=== PATIENT | female | born 1970 | race Caucasian/White ===

== ENCOUNTER 2023-04-16 05:30 | Emergency (ER) | payer MEDICAID ==
[~2023-04-16] VITALS: Ht 165.1 cm; Wt 99.8 kg
[2023-04-16 05:35] VITALS: BP 166/96; PULSE 91; RESP 18; TEMP 98.5; O2SAT 99
[2023-04-16] MEDS ORDERED: KETOROLAC 30 MG/ML VIAL ONE (07:18)
[2023-04-16] MEDS ORDERED: ONDANSETRON 4 MG/2 ML VIAL ONE (07:19)
[2023-04-16] MEDS: ONDANSETRON 4 MG/2 ML VIAL IVP ONE (07:25)
[2023-04-16] MEDS: KETOROLAC 30 MG/ML VIAL IVP ONE (07:28)
[2023-04-16 07:35] LABS: BASOPHILS # (AUTO) 0.1 K/uL (0.00-0.22); BASOPHILS % (AUTO) 1.1 % (0.0-2.0); EOSINOPHILS # (AUTO) 0.3 K/uL (0-0.4); EOSINOPHILS % (AUTO) 3.2 % (0.0-4.0); HEMATOCRIT 41.1 % (36-48); HEMOGLOBIN 14.1 g/dL (12.0-16.0); LYMPHOCYTES # (AUTO) 2.5 K/uL (2.5-16.5); LYMPHOCYTES % (AUTO) 28.3 % (20.5-51.1); MEAN CORPUSCULAR HEMOGLOBIN 29 pg (27-31); MEAN CORPUSCULAR HGB CONC 34 g/dL (33-37); MEAN CORPUSCULAR VOLUME 85.8 fL (80-94); MONOCYTES # (AUTO) 0.6 K/uL (0.8-1.0); MONOCYTES % (AUTO) 7.1 % (1.7-9.3); NEUTROPHILS # (AUTO) 5.3 K/uL (1.8-7.7); NEUTROPHILS % (AUTO) 60.3 % (42.2-75.2); PLATELET COUNT (AUTO) 303 K/uL (140-450); RED BLOOD CELL COUNT(AUTO) 4.79 MIL/uL (4.20-5.40); RED CELL DISTRIBUTION WIDTH 13.7 % (11.6-13.7); WHITE BLOOD COUNT (AUTO) 8.7 K/uL (4.8-10.8)
[2023-04-16 07:42] LABS: APPEARANCE,URINE SL CLOUDY (CLEAR); BILIRUBIN,URINE NEGATIVE (NEGATIVE); BLOOD, URINE NEGATIVE (NEGATIVE); COLOR,URINE YELLOW (YELLOW); LEUKOCYTE ESTERASE ,URINE NEGATIVE (NEGATIVE); NITRITE, URINE POSITIVE (NEGATIVE); PROTEIN,URINE NEGATIVE (NEGATIVE); UGLUCOSE NEGATIVE (NEGATIVE); UROBILINOGEN,URINE 0.2 EU/dL (0.2 - 1)
[2023-04-16 07:46] LABS: ANION GAP 7.7 (8-16); CALCIUM 8.5 mg/dL (8.5-10.1); CARBON DIOXIDE 31.8 mmol/L (21-32); CREATININE 0.7 mg/dL (0.6-1.3); POTASSIUM 3.5 mmol/L (3.5-5.1)
[2023-04-16 07:50] LABS: ALBUMIN 3.1 g/dL (3.4-5.0); BILIRUBIN,DIRECT 0.1 mg/dL (0.0-0.3); TOTAL BILIRUBIN 0.1 mg/dL (0.0-1.0); TOTAL PROTEIN, SERUM 7.7 g/dL (6.4-8.2)
[2023-04-16 07:52] LABS: BACTERIA,URINE >30 (MANY) /HPF (None Seen); RBC,URINE 0-5 /HPF (0-5); SQUAMOUS EPITHELIAL CELL,UR 4-10 (MOD) /LPF (0-3 (FEW))
[2023-04-16 07:53] LABS: AMPHETAMINE, URINE POSITIVE ng/ml (NEG <=1000); BARBITURATE, URINE NEGATIVE ng/ml (NEG <=200)
[2023-04-16] MEDS ORDERED: ONDA-188 SL (07:53)
[2023-04-16] MEDS ORDERED: MELO-176 PO (07:53)
[2023-04-16 07:54] LABS: BENZODIAZEPINE, URINE NEGATIVE ng/mL (NEG <=200); CANNABINOID, URINE NEGATIVE ng/mL (NEG <=50); COCAINE, URINE NEGATIVE ng/mL (NEG <=300); OPIATE, URINE NEGATIVE ng/mL (NEG <=2000); PHENCYCLIDINE SCREEN,URINE NEGATIVE ng/mL (NEG <=25)
[2023-04-16] MEDS ORDERED: AMOX1TAB8 PO (07:56)
[2023-04-16 08:05] VITALS: BP 129/84; PULSE 83; RESP 17; TEMP 96; O2SAT 98
== END 2023-04-16 08:05 | disposition home or self-care (01) ==
LOC: MED 05:30
DX: N39.0 Urinary tract infection, site not specified (principal); R22.1 Localized swelling, mass and lump, neck; F17.200 Nicotine dependence, unspecified, uncomplicated; Z98.890 Other specified postprocedural states; Z79.899 Other long term (current) drug therapy; Z91.040 Latex allergy status; Z91.018 Allergy to other foods
CPT/HCPCS: 36415; 70490; 71045; 74176; 80048; 80076; 80305; 81001; 81025; 83690; 85025; 87086; 96374; 96375; 99285; J1885; J2405

== ENCOUNTER 2023-07-01 10:55 | Emergency (ER) | payer MEDICAID ==
[~2023-07-01] VITALS: Ht 167.6 cm; Wt 98.0 kg
[~2023-07-01 10:55] MED LIST: AMOX1TAB8 PO; MELO-176 PO; ONDA-188 SL
[2023-07-01 11:03] VITALS: BP 197/116; PULSE 86; RESP 18; TEMP 97.7; O2SAT 99
[2023-07-01 11:33] VITALS: O2SAT 99
[2023-07-01 12:39] VITALS: BP 165/88; PULSE 81; RESP 18; TEMP 97.7; O2SAT 99
== END 2023-07-01 12:48 | disposition home or self-care (01) ==
LOC: MED 10:55
DX: R22.2 Localized swelling, mass and lump, trunk (principal); I10 Essential (primary) hypertension; Z79.899 Other long term (current) drug therapy; Z88.8 Allergy status to other drugs, medicaments and biological substances; Z91.040 Latex allergy status
CPT/HCPCS: 71250; 99284

== ENCOUNTER 2023-11-23 01:30 | Emergency (ER) | payer MEDICAID ==
[~2023-11-23] VITALS: Ht 167.6 cm; Wt 96.6 kg
[2023-11-23 01:36] VITALS: BP 145/94; PULSE 76; RESP 14; TEMP 97.3; O2SAT 98
== END 2023-11-23 02:36 | disposition left against medical advice (07) ==
LOC: MED 01:30
DX: M25.511 Pain in right shoulder (principal); Z53.21 Procedure and treatment not carried out due to patient leaving prior to being seen by health care provider